=== PATIENT | male | born 1955 | race Two or more races ===

== ENCOUNTER 2019-07-03 05:49 | Day surgery (SDC) | payer OTHER ==
--- NOTE | 2019-06-26 09:47 | Opthalmology H&P ---
Ophthalmology H&P H&P Chief Complaint: decreased vision in left eye HPI Vision Affects Ability to: read, watch TV, drive, manage personal affairs HPI Narrative blurry vision Exam Visual Acuity: OD Counting fingersa OS Counting Fingers Tension: OD 15 OS 12 Eye Exam: normal OU: external exam, palpebral fissure-width, marginal reflex distance, levator function, corneas, anterior chambers; findings: lens - NS/PSC Cataracts OU, fundus exam - Poor View OU Assessment/Plan Treatment Plan: cataract extraction w/ lens implant Goals of Treatment: improvement of vision, enhance quality of life Attestation Attestation The risks and benefits of the surgery as well as alternative procedures were explained to the patient in detail. Owen Parker MD Jun 26, 2019 09:47
--- NOTE | 2019-06-26 09:50 | Pre-Procedure Note/Attestation ---
Pre-Procedure Note/Attestation Complete Prior to Procedure Planned Procedure: left Procedure Narrative: Cataract extraction with intraocular lens implant left eye Indications for Procedure Pre-Operative Diagnosis: Nuclear sclerotic/ Posterior subcapsular cataract left eye Attestation I attest that I discussed the nature of the procedure; its benefits; risks and complications; and alternatives (and the risks and benefits of such alternatives ), prior to the procedure, with the patient (or the patient's legal regional sales representative). I attest that, if there was a reasonable possibility of needing a blood transfusion, the patient (or the patient's legal regional sales representative) was given the [facility] standardized written summary, pursuant to the Joselo Cady Blood Safety Act ([place] Health and Safety Code # 1645, as amended). I attest that I re-evaluated the patient just prior to the surgery and that there has been no change in the patient's H&P, except as documented below: Owen Parker MD Jun 26, 2019 09:50
--- NOTE | 2019-07-02 13:06 | Pre-Procedure Note/Attestation ---
Pre-Procedure Note/Attestation Complete Prior to Procedure Planned Procedure: left Procedure Narrative: Cataract extraction with intraocular lens implant left eye Indications for Procedure Pre-Operative Diagnosis: Nuclear sclerotic/ Posterior subcapsular cataract left eye Attestation I attest that I discussed the nature of the procedure; its benefits; risks and complications; and alternatives (and the risks and benefits of such alternatives ), prior to the procedure, with the patient (or the patient's legal sales representative uniforms). I attest that, if there was a reasonable possibility of needing a blood transfusion, the patient (or the patient's legal sales representative uniforms) was given the [facility] standardized written summary, pursuant to the Joselo Cady Blood Safety Act ([place] Health and Safety Code # 1645, as amended). I attest that I re-evaluated the patient just prior to the surgery and that there has been no change in the patient's H&P, except as documented below: Owen Parker MD Jul 02, 2019 13:06
[2019-07-03] VITALS (8 sets, daily range): BP systolic 121–136; BP diastolic 73–88
[~2019-07-03] VITALS: Ht 162.6 cm; Wt 70.3 kg
[~2019-07-03 05:49] MED LIST: Akten 3.5% 1ml Btl LEFT EYE ONE; Cyclopentolate 1% Opth Sol 2ml LEFT EYE SCH; Diclofenac Sod 0.1% Op Soln LEFT EYE SCH; Phenylephrine 10% Opth Soln 5ml LEFT EYE SCH; Proparacaine 0.5% Opth Soln 15ml LEFT EYE ONE; Tetracaine 0.5% Opth 4ml Soln LEFT EYE ONE; Tobramycin Op Soln 0.3% 5ml LEFT EYE SCH; Tropicamide 1% Opth 15ml Soln LEFT EYE SCH
[2019-07-03] MEDS: Cyclopentolate 1% Opth Sol 2ml LEFT EYE SCH ×3 (06:48→07:29)
[2019-07-03] MEDS: Diclofenac Sod 0.1% Op Soln LEFT EYE SCH ×3 (06:49→07:29)
[2019-07-03] MEDS: Tobramycin Op Soln 0.3% 5ml LEFT EYE SCH ×3 (06:51→07:29)
[2019-07-03] MEDS: Phenylephrine 10% Opth Soln 5ml LEFT EYE SCH ×3 (06:52→07:29)
[2019-07-03] MEDS: Tropicamide 1% Opth 15ml Soln LEFT EYE SCH ×3 (06:52→07:29)
[2019-07-03] MEDS ORDERED: Tetracaine 0.5% Opth 4ml Soln LEFT EYE ONE (07:00)
[2019-07-03] MEDS ORDERED: Proparacaine 0.5% Opth Soln 15ml LEFT EYE ONE (07:00)
[2019-07-03] MEDS ORDERED: Akten 3.5% 1ml Btl LEFT EYE ONE (07:00)
[2019-07-03] MEDS ORDERED: LISINOPRIL20 MG ORAL (07:47)
[2019-07-03] MEDS ORDERED: ALLOPURINOL300 M1 ORAL (07:47)
[2019-07-03] MEDS ORDERED: METOPROLOL TART50 M1 ORAL (07:47)
[2019-07-03] MEDS ORDERED: IRON325 M1 PO (07:47)
[2019-07-03] MEDS ORDERED: LR 1000ml 1,000 ML IVLG SCH (07:48)
--- NOTE | 2019-07-03 07:48 | Anethesia Preoperative Eval ---
Anesthesia Pre-op PMH/ROS General Date of Evaluation: Jul 03, 2019 Anesthesiologist: Molina ASA Score: ASA 2 Mallampati Score Class I : Soft palate, uvula, fauces, pillars visible Class II: Soft palate, uvula, fauces visible Class III: Soft palate, base of uvula visible Class IV: Only hard plate visible Mallampati Classification: Class II Surgeon: Elena Diagnosis: left cataract Surgical Procedure: left cataract extraction with IOL Anesthesia History: none Family History: no anesthesia problems Allergies: Coded Allergies: No Known Allergies (Unverified , 06/25/19) Medications: see eMAR Patient NPO?: Yes NPO Date: Jul 02, 2019 NPO Time: 20:00 Past Medical History Cardiovascular: Denies: HTN, CAD, [place], valve dz, arrhythmia, other Pulmonary: Denies: asthma, COPD, [place], other Gastrointestinal/Genitourinary: Denies: GERD, CRI, ESRD, other Neurologic/Psychiatric: Denies: dementia, CVA, depression/anxiety, TIA, other Endocrine: Denies: DM, hypothyroidism, steroids, other HEENT: Denies: cataract (L), cataract (R), glaucoma, SAMISH (L), SAMISH (R), other Hematology/Immune: Denies: anemia, DVT, bleeding disorder, other Musculoskeletal/Integumentary: Denies: OA, RA, DJD, DDD, edema, other PSxH Narrative: Denies Anesthesia Pre-op Phys. Exam Physician Exam Last Vital Signs Date Time Temp Pulse Resp B/P (MAP) Pulse Ox O2 Delivery O2 Flow Rate FiO2 07/03/19 07:08 Room Air 07/03/19 06:58 98.2 85 20 135/88 Constitutional: NAD Cardiovascular: RRR Respiratory: CTA Airway Exam Mallampati Score: Class II MO: full ROM: full Anesthesia Pre-op A/P Labs see chart Studies Pre-op Studies: EKG - sr Risk Assessment & Plan Assessment: ASA II Plan: MAC Status Change Before Surgery: No Pre-Antibiotics Drug: N/A Anjali Gaona MD Jul 03, 2019 07:48
[2019-07-03] MEDS ORDERED: DiphenhydrAMINE 50mg/ml Inj IVP PRN (08:00)
[2019-07-03] MEDS ORDERED: fentaNYL 100 mcg/2 mL IV ONE (08:30)
[2019-07-03] MEDS ORDERED: Dexamethasone 4mg/ml vial ONE (08:30)
[2019-07-03] MEDS ORDERED: Midazolam 2mg/2ml Inj ONE (08:30)
[2019-07-03] MEDS ORDERED: Pred Forte 1% Opth Susp 1ml ONE (08:30)
[2019-07-03] MEDS ORDERED: Pilocarpine 1% Opth 15ml Soln ONE (08:30)
[2019-07-03] MEDS ORDERED: LR 1000ml ONE (08:30)
[2019-07-03] MEDS ORDERED: Sterile Water Irrig 1000ml IRRIG ONE (08:30)
[2019-07-03] MEDS ORDERED: NS Irrig 1000ml ONE (08:30)
--- NOTE | 2019-07-03 09:19 | Immediate Post-Op Evaluation ---
Immediate Post-Op Evalulation Immediate Post-Op Evalulation Procedure: left cataract extraction with iol Date of Evaluation: Jul 03, 2019 Time of Evaluation: 09:21 IV Fluids: 300 Blood Products: 0 Estimated Blood Loss: 0 Urinary Output: 0 Blood Pressure Systolic: 134 Blood Pressure Diastolic: 88 Pulse Rate: 72 Respiratory Rate: 16 O2 Sat by Pulse Oximetry: 100 Temperature (Fahrenheit): 97.6 Pain Score (1-10): 0 Nausea: No Vomiting: No Complications 0 Patient Status: awake, reacts, none Hydration Status: adequate Drug: N/A Anjali Gaona MD Jul 03, 2019 09:19
--- NOTE | 2019-07-03 09:19 | 48 Hour Post Anesthesia Eval ---
Post Anesthesia Evaluation Procedure: left cataract extraction with iol Date of Evaluation: Jul 03, 2019 Airway: patent Nausea: No Vomiting: No Hydration Status: adequate Cardiopulmonary Status: at baseline Mental Status/LOC: patient returned to baseline Post-Anesthesia Complications: 0 Follow-up care needed: ready to discharge Anjali Gaona MD Jul 03, 2019 09:19
[2019-07-03] MEDS ORDERED: BSS 500ml btl ONE (10:28)
[2019-07-03] MEDS ORDERED: Povidone-Iodine 5% opth solution ONE (10:28)
[2019-07-03] MEDS ORDERED: Polysporin Opth Oint 3.5gm ONE (10:28)
[2019-07-03] MEDS ORDERED: BSS 15ml BTL ONE (10:28)
[2019-07-03] MEDS ORDERED: EPINEPHrine 1mg/1ml Amp ONE (10:28)
[2019-07-03] MEDS ORDERED: Sodium Hyaluronate 14 mg/ml 0.85ml ONE (10:29)
--- NOTE | 2019-07-06 10:55 | Brief Operative Note ---
Immediate Post Operative Note Operative Note Chief Complaint: Blurry Vision Pre-op Diagnosis: Nuclear sclerotic/ Posterior subcapsular cataract left eye Procedure: Cataract extraction with IOL implant left eye Post-op Diagnosis: Pseudo OS Surgeon: Owen Parker MD Anesthesiologist: Anjali Salter MD Anesthesia: MAC Specimen: none Complications: none Condition: stable Fluids: LR Estimated Blood Loss: none Drains: none Implant(s) used?: Yes - IOL-OS Owen Parker MD Jul 06, 2019 10:55
--- NOTE | 2019-07-06 11:04 | Operative Note - PDOC ---
Operative Note Operative Note Date of Operation/Procedure: Jul 03, 2019 Chief Complaint: Blurry Vision Pre-op Diagnosis: Nuclear sclerotic/ Posterior subcapsular cataract left eye Procedure: Cataract extraction with IOL implant left eye Post-op Diagnosis: Pseudo OS Surgeon: Owen Parker MD Anesthesiologist: Anjali Mejias MD Anesthesia: MAC Specimen: none Complications: none Condition: stable Fluids: LR Estimated Blood Loss: none Drains: none Implant(s) used?: Yes - IOL-OS Indications for Procedure Posterior subcapsular/ Nuclear sclerotic cataract left eye Description of Procedure This patient has been complaining visually significant cataract in the left eye with the best corrected visual acuity of counting fingers. The patient complains being unable to read his mail and difficulties with glare in performing other activities of daily living and wants to manage personal affairs with comfort and accuracy and see well enough to move with safety at home and outdoors independently. The risks, benefits and alternatives of the procedure were discussed with the patient in the office prior to scheduling surgery. All questions from the patient were answered after the surgical procedure was explained in detail. The risks of the procedure as explained to the patient include, but are not limited to, pain, infection, bleeding, loss of vision, retinal detachment, need for further surgery, loss of lens nucleus, double vision, etc. Alternative procedures were discussed which include, to do nothing or seek a second opinion. Informed consent for this procedure was obtained from the patient. The patient was referred to a primary care physician for a cardiopulmonary clearance prior to surgery, after proper evaluation was done patient was properly scheduled for outpatient surgery. The patient was brought to the operating room where the anesthesiologist established I.V. lines and cardiac monitoring leads. Mild intravenous sedation was administered. The patient was then prepared with a 5% solution of povidone -iodine to the conjunctival fornix and lashes, and a 5% solution of povidone- iodine to the lids and periorbital skin. The patient was then draped in the usual sterile fashion. A lid speculum was then placed in the operative eye. A keratome blade was then used to create a biplanar incision into the anterior chamber. Viscoelastics was then instilled into the anterior chamber. A 3-mm single pass clear corneal incision was made just anterior to the vascular arcade of the temporal limbus using a keratome. Anterior capsulorrhexis was created. The nucleus was hydrodissected and hydrodelineated, and was freely movable in the capsular bag. The nucleus was then phacoemulsified. Following the deep groove formation, the lens was split bimanually and epicortex removed under vacuum burst-mode phacoemulsification. Peripheral cortex was removed with the irrigation and aspiration handpiece. The capsular bag was expanded with viscoelastic. The intraocular lens was then inspected for right power and size and thought to be satisfactory. The implant was inspected under the microscope and found to be free of defects. The implant was inserted into the cartridge system under viscoelastic and placed in the capsular bag. The trailing haptic was positioned with the cartridge system. Viscoelastics was removed from the anterior chamber using the irrigation and aspiration unit. The corneal wound was then tested for leaks and none were found. The lid speculum were then removed. Sponge and needle counts were correct. An eye patch and shield were placed over the operative eye. The patient was taken to the recovery room in stable condition. There were no complications. The patient tolerated the procedure well. The patient was then transferred to the ambulatory surgery unit in stable and satisfactory condition , was given detailed written instructions and asked to follow up in the office the next day. Owen Parker MD Jul 06, 2019 11:04
== END 2019-07-03 11:00 | disposition home or self-care (01) ==
LOC: SUR 05:49
DX: H25.12 Age-related nuclear cataract, left eye (principal); H25.042 Posterior subcapsular polar age-related cataract, left eye; I10 Essential (primary) hypertension; Z79.899 Other long term (current) drug therapy; R73.03 Prediabetes
CPT/HCPCS: 66984; J0171; J1100; J2250; J3010; J3370; V2632; 94003; 94150

== ENCOUNTER 2019-08-10 05:58 | Day surgery (SDC) | payer OTHER ==
--- NOTE | 2019-08-07 09:18 | Pre-Procedure Note/Attestation ---
Pre-Procedure Note/Attestation Complete Prior to Procedure Planned Procedure: right Procedure Narrative: Cataract extraction with IOL implant right eye Indications for Procedure Pre-Operative Diagnosis: Nuclear sclerotic/Posterior subcapsular cataract right eye Attestation I attest that I discussed the nature of the procedure; its benefits; risks and complications; and alternatives (and the risks and benefits of such alternatives ), prior to the procedure, with the patient (or the patient's legal corporate representative). I attest that, if there was a reasonable possibility of needing a blood transfusion, the patient (or the patient's legal corporate representative) was given the [facility] standardized written summary, pursuant to the Joselo Cady Blood Safety Act ([place] Health and Safety Code # 1645, as amended). I attest that I re-evaluated the patient just prior to the surgery and that there has been no change in the patient's H&P, except as documented below: Owen Parker MD Aug 07, 2019 09:18
--- NOTE | 2019-08-07 09:25 | Opthalmology H&P ---
Ophthalmology H&P H&P Chief Complaint: decreased vision in right eye HPI Vision Affects Ability to: read, manage personal affairs HPI Narrative Blurry vision Exam Visual Acuity: OD 20/200 OS 20/60 Tension: OD 13 OS 14 Eye Exam: normal OU: external exam, palpebral fissure-width, marginal reflex distance, levator function, corneas, anterior chambers, fundus exam; findings: lens - NS Cataract OD/ Pseudo OS Assessment/Plan Treatment Plan: cataract extraction w/ lens implant Goals of Treatment: improvement of vision, enhance quality of life Attestation Attestation The risks and benefits of the surgery as well as alternative procedures were explained to the patient in detail. Owen Parker MD Aug 07, 2019 09:25
[2019-08-10] VITALS (13 sets, daily range): BP systolic 115–144; BP diastolic 72–87
[~2019-08-10] VITALS: Ht 162.6 cm; Wt 70.3 kg
[~2019-08-10 05:58] MED LIST changes: +ALLOPURINOL300 M1 ORAL; -Akten 3.5% 1ml Btl LEFT EYE ONE; -Cyclopentolate 1% Opth Sol 2ml LEFT EYE SCH; -Diclofenac Sod 0.1% Op Soln LEFT EYE SCH; +IRON325 M1 PO; +LISINOPRIL20 MG ORAL; +METOPROLOL TART50 M1 ORAL; -Phenylephrine 10% Opth Soln 5ml LEFT EYE SCH; -Proparacaine 0.5% Opth Soln 15ml LEFT EYE ONE; -Tetracaine 0.5% Opth 4ml Soln LEFT EYE ONE; -Tobramycin Op Soln 0.3% 5ml LEFT EYE SCH; -Tropicamide 1% Opth 15ml Soln LEFT EYE SCH
[2019-08-10] MEDS: Cyclopentolate 1% Opth Sol 2ml RIGHT EYE SCH ×3 (06:38→06:59)
[2019-08-10] MEDS: Phenylephrine 10% Opth Soln 5ml RIGHT EYE SCH ×3 (06:39→06:59)
[2019-08-10] MEDS: Tropicamide 1% Opth 15ml Soln RIGHT EYE SCH ×3 (06:39→06:59)
[2019-08-10] MEDS: Tobramycin Op Soln 0.3% 5ml RIGHT EYE SCH ×3 (06:40→06:59)
[2019-08-10] MEDS ORDERED: Proparacaine 0.5% Opth Soln 15ml RIGHT EYE ONE (07:00)
[2019-08-10] MEDS ORDERED: Pred Forte 1% Opth Susp 1ml ONE (07:00)
[2019-08-10] MEDS ORDERED: Tetracaine 0.5% Opth 4ml Soln RIGHT EYE ONE (07:00)
[2019-08-10] MEDS ORDERED: Polysporin Opth Oint 3.5gm ONE (07:00)
[2019-08-10] MEDS ORDERED: Diclofenac Sod 0.1% Op Soln RIGHT EYE SCH (07:00)
[2019-08-10] MEDS ORDERED: Dexamethasone 4mg/ml vial ONE (07:00)
[2019-08-10] MEDS ORDERED: Tetracaine 0.5% Opth 4ml Soln ONE (07:00)
[2019-08-10] MEDS ORDERED: Akten 3.5% 1ml Btl RIGHT EYE ONE (07:00)
[2019-08-10] MEDS ORDERED: Lidocaine 2% MPF 5ml Vial INJ ONE (07:41)
[2019-08-10] MEDS ORDERED: Lidocaine 4% Amp ONE (07:41)
[2019-08-10] MEDS ORDERED: acetaZOLAMIDE 500mg Inj ONE ×2 (07:41→07:44)
[2019-08-10] MEDS ORDERED: Carbachol 0.01% Op Soln 1.5ml vial ONE (07:41)
[2019-08-10] MEDS ORDERED: EPINEPHrine 1mg/1ml Amp ONE ×2 (07:41→07:45)
[2019-08-10] MEDS ORDERED: Bupivacaine 0.75% 30ml vial INJ ONE (07:42)
[2019-08-10] MEDS ORDERED: BSS 500ml btl ONE (07:42)
[2019-08-10] MEDS ORDERED: BSS 15ml BTL ONE (07:42)
[2019-08-10] MEDS ORDERED: Sodium Hyaluronate 14 mg/ml 0.85ml ONE (07:42)
[2019-08-10] MEDS ORDERED: Povidone-Iodine 5% opth solution ONE (07:44)
[2019-08-10] MEDS ORDERED: Midazolam 2mg/2ml Inj ONE ×3 (08:21→09:18)
[2019-08-10] MEDS ORDERED: LR 1000ml 1,000 ML IVLG SCH (08:28)
[2019-08-10] MEDS ORDERED: HYDROcodone/Acetamin 5/325 tab ORAL PRN (08:30)
[2019-08-10] MEDS ORDERED: oxyCODONE HCL/Acetaminophen 5/325mg ORAL PRN (08:30)
[2019-08-10] MEDS ORDERED: Midazolam 2mg/2ml Inj IVP PRN (08:30)
[2019-08-10] MEDS ORDERED: fentaNYL 100 mcg/2 mL IV PRN ×2 (08:30→10:15)
[2019-08-10] MEDS ORDERED: Pilocarpine 1% Opth 15ml Soln ONE (08:30)
[2019-08-10] MEDS ORDERED: Ketorolac 30mg Inj IV PRN ×2 (08:30)
[2019-08-10] MEDS ORDERED: Labetalol 5mg/ml 20ml vial IV PRN (08:30)
[2019-08-10] MEDS ORDERED: NS Irrig 1000ml ONE (08:30)
[2019-08-10] MEDS ORDERED: LORazepam Inj 2mg/ml 1ml IV PRN (08:30)
[2019-08-10] MEDS ORDERED: Atropine Sulfate 0.4mg/ml inj IVP PRN (08:30)
[2019-08-10] MEDS ORDERED: Sterile Water Irrig 1000ml IRRIG ONE (08:30)
[2019-08-10] MEDS ORDERED: Hydromorphone 0.5mg/0.5ml inj IVP PRN (08:30)
[2019-08-10] MEDS ORDERED: HYDROcodone/Acetamin 7.5/325 tab ORAL PRN (08:30)
[2019-08-10] MEDS ORDERED: LR 1000ml ONE (08:30)
[2019-08-10] MEDS ORDERED: Metoclopramide 10mg/2ml Inj IVP PRN (08:30)
[2019-08-10] MEDS ORDERED: Meperidine 50mg/ml Inj(FOR RIGORS ONLY) IVP PRN (08:30)
[2019-08-10] MEDS ORDERED: DiphenhydrAMINE 50mg/ml Inj IVP PRN (08:30)
--- NOTE | 2019-08-10 08:35 | Anethesia Preoperative Eval ---
Anesthesia Pre-op PMH/ROS General Date of Evaluation: Aug 10, 2019 Anesthesiologist: Susanne ASA Score: ASA 3 Mallampati Score Class I : Soft palate, uvula, fauces, pillars visible Class II: Soft palate, uvula, fauces visible Class III: Soft palate, base of uvula visible Class IV: Only hard plate visible Mallampati Classification: Class II Surgeon: Elena Diagnosis: Cataract OD Surgical Procedure: Cat Ext IOL OD Anesthesia History: none Family History: no anesthesia problems Allergies: Coded Allergies: No Known Allergies (Unverified , 06/25/19) Medications: see eMAR Patient NPO?: Yes Past Medical History Cardiovascular: Reports: HTN Neurologic/Psychiatric: Reports: other - Meningitis HEENT: Reports: cataract (L), cataract (R) Hematology/Immune: Reports: anemia Musculoskeletal/Integumentary: Reports: other - Gout Anesthesia Pre-op Phys. Exam Physician Exam Last Vital Signs Date Time Temp Pulse Resp B/P (MAP) Pulse Ox O2 Delivery O2 Flow Rate FiO2 08/10/19 06:49 98.2 75 20 128/72 99 Room Air Constitutional: NAD Neurologic: CN 2-12 intact Cardiovascular: RRR Respiratory: CTA Gastrointestinal: S/NT/ND Airway Exam Mallampati Score: Class II MO: limited ROM: limited Teeth: missing Anesthesia Pre-op A/P Risk Assessment & Plan Assessment: ASA 3 Plan: GA Status Change Before Surgery: Forrest Serna MD Aug 10, 2019 08:34
[2019-08-10] MEDS ORDERED: fentaNYL 100 mcg/2 mL IV ONE ×2 (08:37→09:20)
--- NOTE | 2019-08-10 08:55 | Anethesia Preoperative Eval ---
Anesthesia Pre-op PMH/ROS General Date of Evaluation: Aug 10, 2019 Time of Evaluation: 08:30 Anesthesiologist: christian ASA Score: ASA 2 Mallampati Score Class I : Soft palate, uvula, fauces, pillars visible Class II: Soft palate, uvula, fauces visible Class III: Soft palate, base of uvula visible Class IV: Only hard plate visible Mallampati Classification: Class II Surgeon: Elena Diagnosis: Cataract Surgical Procedure: Cataract extraction Anesthesia History: none Family History: no anesthesia problems Allergies: Coded Allergies: No Known Allergies (Unverified , 06/25/19) Medications: see eMAR Patient NPO?: Yes NPO Date: Aug 10, 2019 NPO Time: 00:01 Past Medical History Cardiovascular: Reports: HTN; Denies: CAD, [place], valve dz, arrhythmia, other Gastrointestinal/Genitourinary: Denies: GERD, CRI, ESRD, other Neurologic/Psychiatric: Denies: dementia, CVA, depression/anxiety, TIA, other Endocrine: Denies: DM, hypothyroidism, steroids, other HEENT: Denies: cataract (L), cataract (R), glaucoma, [place] (L), [place] (R), other Hematology/Immune: Denies: anemia, DVT, bleeding disorder, other Musculoskeletal/Integumentary: Denies: OA, RA, DJD, DDD, edema, other Other: other - gout PSxH Narrative: cataract extraction left eye in jul 2019 Anesthesia Pre-op Phys. Exam Physician Exam Last Vital Signs Date Time Temp Pulse Resp B/P (MAP) Pulse Ox O2 Delivery O2 Flow Rate FiO2 08/10/19 06:49 98.2 75 20 128/72 99 Room Air Constitutional: NAD Neurologic: CN 2-12 intact Cardiovascular: RRR Respiratory: CTA Gastrointestinal: S/NT/ND Airway Exam Mallampati Classification 2 Mallampati Score: Class II Neck: normal ROM: full Teeth: intact Dentures: no upper, no lower Anesthesia Pre-op A/P Studies Pre-op Studies: EKG - SR Risk Assessment & Plan Plan: mac Status Change Before Surgery: No Pre-Antibiotics Drug: declined Bailey Gamboa CRNA Aug 10, 2019 08:55
[2019-08-10] MEDS ORDERED: Propofol 200mg/20ml IV ONE (09:34)
[2019-08-10] MEDS ORDERED: ePHEDrine 50mg/ml Inj ONE (09:39)
--- NOTE | 2019-08-10 10:13 | Immediate Post-Op Evaluation ---
Immediate Post-Op Evalulation Immediate Post-Op Evalulation Procedure: R cataract extraction with IOL Date of Evaluation: Aug 10, 2019 Time of Evaluation: 10:13 IV Fluids: 800 Blood Pressure Systolic: 140 Blood Pressure Diastolic: 60 Pulse Rate: 96 Respiratory Rate: 14 O2 Sat by Pulse Oximetry: 99 Temperature (Fahrenheit): 97.8 Nausea: No Vomiting: No Complications none Patient Status: awake, reacts, patent Hydration Status: adequate Drug: none Bailey Gamboa CRNA Aug 10, 2019 10:13
[2019-08-10] MEDS ORDERED: Esmolol 100mg/10ml Inj ONE (11:36)
--- NOTE | 2019-08-10 12:16 | 48 Hour Post Anesthesia Eval ---
Post Anesthesia Evaluation Procedure: R cataract extraction with IOL Date of Evaluation: Aug 10, 2019 Time of Evaluation: 12:16 Blood Pressure Systolic: 129 0: 87 Pulse Rate: 94 Temperature (Fahrenheit): 98 Airway: patent Nausea: No Vomiting: No Cardiopulmonary Status: stable Mental Status/LOC: patient returned to baseline Follow-up Care/Observations: na Post-Anesthesia Complications: none Follow-up care needed: N/A Bailey Gamboa CRNA Aug 10, 2019 12:16
--- NOTE | 2019-08-11 11:34 | Brief Operative Note ---
Immediate Post Operative Note Operative Note Chief Complaint: blurry vision Pre-op Diagnosis: Nuclear sclerotic/Posterior subcapsular cataract right eye Procedure: Cataract extraction with IOL implant right eye Post-op Diagnosis: Pseudo OD Findings: consistent w/pre-op dx studies Surgeon: Owen Parker MD Anesthesiologist: Bailey Waddell CRNA Anesthesia: MAC Specimen: none Complications: none Condition: stable Fluids: LR Estimated Blood Loss: none Drains: none Implant(s) used?: Yes - IOL OD Owen Parker MD Aug 11, 2019 11:34
--- NOTE | 2019-08-11 11:36 | Operative Note - PDOC ---
Operative Note Operative Note Date of Operation/Procedure: Aug 10, 2019 Chief Complaint: blurry vision Pre-op Diagnosis: Nuclear sclerotic/Posterior subcapsular cataract right eye Procedure: Cataract extraction with IOL implant right eye Post-op Diagnosis: Pseudo OD Operative Findings: consistent w/pre-op dx studies Surgeon: Owen Parker MD Anesthesiologist: Bailey Waddell CRNA Anesthesia: MAC Specimen: none Complications: none Condition: stable Fluids: LR Estimated Blood Loss: none Drains: none Implant(s) used?: Yes - IOL OD Indications for Procedure Nuclear sclerotic/posterior subcapsular cataract right eye Description of Procedure This patient has been complaining visually significant cataract in the right eye with the best corrected visual acuity of 20/200 under moderate glare conditions worse. The patient complains of difficulties with glare in performing activities of daily living and wants to manage personal affairs with comfort and accuracy and see well enough to move with safety at home and outdoors independently. The risks, benefits and alternatives of the procedure were discussed with the patient in the office prior to scheduling surgery. All questions from the patient were answered after the surgical procedure was explained in detail. The risks of the procedure as explained to the patient include, but are not limited to, pain, infection, bleeding, loss of vision, retinal detachment, need for further surgery, loss of lens nucleus, double vision, etc. Alternative procedures were discussed which include, to do nothing or seek a second opinion. Informed consent for this procedure was obtained from the patient. The patient was referred to a primary care physician for a cardiopulmonary clearance prior to surgery, after proper evaluation was done patient was properly scheduled for outpatient surgery. The patient was brought to the operating room where the anesthesiologist established I.V. lines and cardiac monitoring leads. Mild intravenous sedation was administered. The patient was then prepared with a 5% solution of povidone -iodine to the conjunctival fornix and lashes, and a 5% solution of povidone- iodine to the lids and periorbital skin. The patient was then draped in the usual sterile fashion. A lid speculum was then placed in the operative eye. A keratome blade was then used to create a biplanar incision into the anterior chamber. Viscoelastics was then instilled into the anterior chamber. A 3-mm single pass clear corneal incision was made just anterior to the vascular arcade of the temporal limbus using a keratome. Anterior capsulorrhexis was created. The nucleus was hydrodissected and hydrodelineated, and was freely movable in the capsular bag. The nucleus was then phacoemulsified using a quadrantic [id number] technique. Following the deep groove formation, the lens was split bimanually and the resultant quadrants and cortical material was removed under vacuum burst -mode phacoemulsification. Peripheral cortex was removed with the irrigation and aspiration handpiece. The capsular bag was expanded with viscoelastic. The intraocular lens was then inspected for right power and size and thought to be satisfactory. The implant was inspected under the microscope and found to be free of defects. The implant was inserted into the cartridge system under viscoelastic and placed in the capsular bag. The trailing haptic was positioned with the cartridge system. Viscoelastics was removed from the anterior chamber using the irrigation and aspiration unit. The corneal wound was then tested for leaks and none were found. The lid speculum were then removed. Sponge and needle counts were correct. An eye patch and shield were placed over the operative eye. The patient was taken to the recovery room in stable condition. There were no complications. The patient tolerated the procedure well. The patient was then transferred to the ambulatory surgery unit in stable and satisfactory condition , was given detailed written instructions and asked to follow up in the office the next day. Owen Parker MD Aug 11, 2019 11:36
== END 2019-08-10 13:50 | disposition home or self-care (01) ==
LOC: SUR 05:58
DX: H25.11 Age-related nuclear cataract, right eye (principal); H25.041 Posterior subcapsular polar age-related cataract, right eye; I10 Essential (primary) hypertension; E66.3 Overweight; Z68.26 Body mass index [BMI] 26.0-26.9, adult
CPT/HCPCS: 66984; J0690; J1100; J2250; J2704; J3010; J7120; V2632; 94003; 94150